=== PATIENT | male | born 1990 | race Caucasian/White ===

== ENCOUNTER 2016-10-29 10:12 | Emergency (ER) | payer OTHER ==
[2016-10-29 10:23] VITALS: BP 119/81; PULSE 81; RESP 16; TEMP 99; O2SAT 97
--- NOTE | 2016-10-29 10:27 | EDPHY ---
H & P Stated Complaint: throat pain, painful swallowing, fevers at home Source: Patient Exam Limitations: No limitations - Personal History Current Tetanus/Diphtheria Vaccine: Unsure Current Tetanus Diphtheria and Acellular Pertussis (TDAP): Unsure - Medical/Surgical History Hx Asthma: Yes Hx Chronic Respiratory Disease: No Hx Diabetes: No Hx Cardiac Disease: No Hx Renal Disease: No Hx Cirrhosis: No Hx Alcoholism: No Hx HIV/AIDS: No Hx Splenectomy or Spleen Trauma: No Other PMH: anxiety. adhd. asthma - Social History Smoking Status: Never smoked Time Seen by Provider: 10/29/16 10:16 HPI/ROS: CHIEF COMPLAINT: sore throat, fever HISTORY OF PRESENT ILLNESS: 26-year-old male presents complaining of a sore throat that started yesterday that progressed and worsened as the day went on. He reports he woke up last night from soaking through his sheets with sweat 3 times. Subjective fevers and chills. He denies cough, nasal congestion, chest pain. He reports a mild headache, no neck pain. He states that it feels like he is swallowing razor blades. Patient denies chest pain, shortness of breath, no nausea, vomiting or diarrhea, no abdominal pain. He took Tylenol yesterday which did not relieve his pain. REVIEW OF SYSTEMS: A comprehensive 10 point review of systems is otherwise negative aside from elements mentioned in the history of present illness. (Caryn Polk) - Physical Exam Exam: General: Alert, nontoxic. ENT: Tympanic membranes clear, external auditory canal, external ear and surrounding soft tissue including over the mastoid unremarkable. Nasopharynx is with mild injection, there is no rhinorrhea. Oropharynx with moderate erythema, no edema. There is no exudate. No tonsillar hypertrophy. No asymmetry. The uvula is midline. No elevation of tongue. There is no hoarseness. No drooling, patient has good control of their oral secretions. No trismus. No stridor. Cardiac: Regular rate and rhythm. Respiratory: Lungs clear to auscultation bilaterally. Neurological: no meningismus. Skin: No rashes. (Caryn Polk) Constitutional: Initial Vital Signs Temperature (C) 37.2 C 10/29/16 10:21 Heart Rate 81 10/29/16 10:21 Respiratory Rate 16 10/29/16 10:21 Blood Pressure 119/81 H 10/29/16 10:21 O2 Sat (%) 97 10/29/16 10:21 O2 Delivery Mode Room Air Allergies/Adverse Reactions: No Known Allergies Allergy (Unverified 07/28/10 22:40) Home Medications: Medication Instructions Recorded Adderall 07/28/10 Advair 100/50 07/28/10 Albuterol HFA 17g 07/28/10 Hydrocodone/APAP 5/325 [[place] 1 tab PO Q4H PRN #10 tab 10/29/16 5/325] Medical Decision Making ED Course/Re-evaluation: Rapid strep came back negative no emergency department, the patient was discharged home with a prescription for [place] and given viral pharyngitis instructions. Patient was given strict return precautions for any difficulty managing his secretions, chest pain, shortness of breath, any other questions or concerns. 5pm-Later in the day his strep culture came back positive. The patient was called and is aware of these results, penicillin was called in to the pharmacy of his choice. (Caryn Polk) Differential Diagnosis: Diagnosis considered but not limited to tonsillitis, strep pharyngitis, viral pharyngitis, Mckinley's angina, peritonsillar abscess (Crayn Polk) Other Provider: This patient was evaluated and managed by the nurse practitioner. I have reviewed the chart and agree with the findings and plan of care as documented. ( Leslie Carrillo) - Data Points Laboratory Results: 10/29/16 10/29/16 10/29/16 Unknown 12:08 10:36 Influenza Typ A,B (DFA) NEGATIVE FOR FLU (NEGATIVE) Group A Strep Screen NEGATIVE (NEGATIVE) Group A Strep DNA POSITIVE H (NEGATIVE) Medications Given: Discontinued Medications Acetaminophen/Hydrocodone Bitart ([place] 5/325) 2 tab PO EDNOW ONE Stop: 10/29/16 11:58 Last Admin: 10/29/16 12:00 Dose: 2 tab Dexamethasone (Decadron) 10 mg PO EDNOW ONE Stop: 10/29/16 11:22 Last Admin: 10/29/16 11:22 Dose: 10 mg Ibuprofen (Motrin) 600 mg PO EDNOW ONE Stop: 10/29/16 11:58 Last Admin: 10/29/16 12:01 Dose: 600 mg Departure - Departure Disposition: Home, Routine, Self-Care Clinical Impression: Acute pharyngitis Qualifiers: Pharyngitis/tonsillitis etiology: unspecified etiology Qualifier Code: (J02.9) Acute pharyngitis, unspecified Condition: Good Instructions: Pharyngitis (ED) Additional Instructions: Take 600 mg of ibuprofen every 8 hours with food for pain and fevers, alternate this with 650 mg of Tylenol every 8 hours. Take [place] for severe pain, this has Tylenol in it, do not take more than 3000 mg of Tylenol in 24 hours. Rest , drink plenty of fluids. Use a saline nasal rinse, humidifier at night, hot steam showers. Return to the ED for difficulty breathing, chest pain, other concerns. Referrals: [place],. [Primary Care Provider] - As per Instructions Prescriptions: Hydrocodone/APAP 5/325 [[place] 5/325] 1 tab PO Q4H PRN #10 tab PRN Reason: Pain, Moderate
[2016-10-29] MEDS ORDERED: DEXAMETHASONE 4 MG TAB PO ONE (11:21)
[2016-10-29] MEDS ORDERED: IBUPROFEN 600 MG TAB PO ONE (11:57)
[2016-10-29] MEDS ORDERED: HYDROCODONE/APAP 5/325 TAB PO ONE (11:57)
== END 2016-10-29 12:49 | disposition home or self-care (01) ==
DX: J02.9 Acute pharyngitis, unspecified (principal); J45.909 Unspecified asthma, uncomplicated

== ENCOUNTER 2017-03-05 14:51 | Emergency (ER) | payer OTHER ==
[2017-03-05 15:03] VITALS: RESP 16
--- NOTE | 2017-03-05 16:59 | CPEKG ---
Heart Rate: 67 RR Interval: 896 P-R Interval: 152 QRSD Interval: 86 QT Interval: 352 QTC Interval: 372 P [place]: 73 QRS [place]: 84 T Wave [place]: 62 EKG Severity - OTHERWISE NORMAL ECG - EKG Impression: SINUS ARRHYTHMIA, RATE 57-80 Electronically Signed By: Jack Montilla 05-Mar-2017 17:16:56
[2017-03-05] MEDS ORDERED: NS 1,000 ML IV ONE (17:13)
[2017-03-05 17:49] LABS: % IMMATURE GRANULYOCYTES 0.3 % (0.0-1.1); ABSOLUTE IMMATURE GRANULOCYTES 0.04 10^3/uL (0.00-0.10); ADD DIFF? NO; ADD MORPH? NO; ADD SCAN? NO; ATYPICAL LYMPHOCYTE FLAG 20 (0-99); FRAGMENT RBC FLAG 0 (0-99); HEMATOCRIT 47.5 % (40.0-51.0); LEFT SHIFT FLG 0 (0-99); LIPEMIA HEMOLYSIS FLAG 90 (0-99); MEAN CELL HEMOGLOBIN 31.5 pg (27.9-34.1); MEAN CELL HEMOGLOBIN CONCENTR. 35.8 g/dL (32.4-36.7); MEAN CELL VOLUME 88.1 fL (81.5-99.8); MEAN PLATELET VOLUME 9.8 fL (8.7-11.7); PLATELET CLUMPS FLAG 0 (0-99); PLATELET COUNT 305 10^3/uL (150-400); RED BLOOD CELL COUNT 5.39 10^6/uL (4.40-6.38); RED CELL DISTRIBUTION WIDTH 12.5 % (11.5-15.2)
[2017-03-05 18:15] LABS: ANION GAP 14 mEq/L (8-16); CALCIUM 10.2 mg/dL (8.5-10.4); CARBON DIOXIDE 26 mEq/l (22-31); CHLORIDE 104 mEq/L (97-110); CREATININE 0.9 mg/dL (0.7-1.3); GLOMERULAR FILTRATION RATE > 60; GLUCOSE 83 mg/dL (70-100); SODIUM 144 mEq/L (134-144)
[2017-03-05 18:27] LABS: TROPONIN I < 0.012 ng/mL (0-0.034)
--- NOTE | 2017-03-05 18:45 | EDPHY ---
H & P Time Seen by Provider: 03/05/17 16:45 HPI/ROS: CHIEF COMPLAINT: Syncope HISTORY OF PRESENT ILLNESS: 26-year-old male presents to the emergency department after having syncopal episode. He vomited. The patient apparently has had 4 syncopal episodes last 48 hours. 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 Patient has no pain in his chest. No difficulty breathing. He does have a history of anxiety and takes Xanax on occasion. He also smokes marijuana daily. He denies any other substance abuse. He has never been seen by electronic health records specialist before. He has had this happen multiple times. He denies any new medication. No reported trauma. REVIEW OF SYSTEMS: Constitutional: No fever, no chills. Eyes: No double or blurry vision. ENT: No sore throat. Respiratory: No cough, no shortness of breath. Cardiac: No chest pain. Gastrointestinal: No abdominal pain, vomiting or diarrhea. Genitourinary: No dysuria. Musculoskeletal: No neck or back pain. Skin: No rashes. Neurological: No headache. Past Medical/Surgical History: Syncope Social History: Single Smoking Status: Never smoked Physical Exam: General Appearance: Alert, no distress. Anxious. Eyes: Pupils equal and round. Extraocular motions are all intact. ENT: Mouth: Mucous membranes moist. Respiratory: No wheezing, rhonchi, or rales, lungs are clear to auscultation. Cardiovascular: Regular rate and rhythm. Gastrointestinal: Abdomen is soft and nontender, no masses, no rebound or guarding, bowel sounds normal. Neurological: Alert and oriented x 3, cranial nerves II through XII grossly intact Skin: Warm and dry, no rashes. Musculoskeletal: Nontender to palpate along the cervical, thoracic or lumbar spine. Neck is supple. Extremities: Full range of motion and no peripheral edema. Psychiatric: Patient is oriented X 3, there is no agitation. Constitutional: Initial Vital Signs Temperature (C) 37 C 03/05/17 14:57 Heart Rate 84 03/05/17 14:57 Respiratory Rate 16 03/05/17 14:57 Blood Pressure 133/88 H 03/05/17 14:57 O2 Sat (%) 98 03/05/17 14:57 O2 Delivery Mode Room Air Allergies/Adverse Reactions: No Known Allergies Allergy (Unverified 07/28/10 22:40) Home Medications: Medication Instructions Recorded Adderall 07/28/10 Advair 100/50 07/28/10 Albuterol HFA 17g 07/28/10 Hydrocodone/APAP 325 [[place] 1 tab PO Q4H PRN #10 tab 10/29/16 5/325] Medical Decision Making ED Course/Re-evaluation: 26-year-old male presents to the emergency department the after he has had multiple syncopal episodes. His EKG was within normal limits. Laboratory studies including troponin was negative. Chest x-ray unremarkable. Patient was given Cardiology referral. I discussed the case with Dr. Jack Montilla, secondary supervising physician, who did not directly evaluate the patient but agrees with treatment and plan. He recommends discharge and follow-up with Cardiology as an outpatient. Patient was comfortable with this plan. Differential Diagnosis: Syncope including but not limited to vasovagal syncope, arrhythmia, dehydration , and blood loss. - Data Points Laboratory Results: Laboratory Results 03/05/17 17:35 03/05/17 17:35 Medications Given: Discontinued Medications Sodium Chloride (Ns) 1,000 mls @ 0 mls/hr IV ONCE ONE PRN Reason: Wide [place] Stop: 03/05/17 17:14 Last Admin: 03/05/17 17:30 Dose: 1,000 mls Departure - Departure Disposition: Home, Routine, Self-Care Clinical Impression: Syncope Qualifiers: Syncope type: unspecified Qualified Code(s): R55 - Syncope and collapse Condition: Good Instructions: Syncope (ED) Additional Instructions: You should follow up with a electronic health records specialist regarding your passing out episodes/ syncope. You should not go to work today. You are okay to return to work tomorrow as long as you feel okay. You should not go to the gym until cleared by the electronic health records specialist. Return to the emergency department if you developed recurring episodes of syncope, if you develop pain in your chest, or if you feel worse in any way. Call to arrange for a follow-up appointment to be seen by a electronic health records specialist regarding her syncopal episodes. Tell them you were seen in the emergency department for this. Referrals: Donavon Porras MD [Medical Doctor] - 2-3 days, call for appt. ( Aviation Consultant on -call)
[2017-03-05 18:57] VITALS: BP 120/68; PULSE 80; TEMP 98.4; O2SAT 96
== END 2017-03-05 18:56 | disposition home or self-care (01) ==
DX: R55 Syncope and collapse (principal)